=== PATIENT | female | born 1960 | race Caucasian/White ===

== ENCOUNTER 2020-07-14 08:21 | Inpatient (IN) | payer MEDICAID, SELFPAY ==
[~2020-07-14] VITALS: Ht 152.4 cm; Wt 51.3 kg
[2020-07-14 08:25] VITALS: BP_SYST 155
[2020-07-14 09:37] LABS: PROTHROMBIN TIME 10.6 SECS (9.5-12.5)
[2020-07-14] MEDS ORDERED: FUROSEMIDE 40 MG/4 ML VIAL IVP ONE (09:45)
[2020-07-14] MEDS ORDERED: NITROGLYCERIN 1 INCH (GM) OINT. TP ONE (09:45)
[2020-07-14 09:46] LABS: HEMATOCRIT 28.5 % (36-48); HEMOGLOBIN 9.3 g/dL (12.0-16.0); LYMPHOCYTES # (AUTO) 0.9 K/uL (1.0-5.5); LYMPHOCYTES % (AUTO) 3.6 % (20.5-51.5); MEAN CORPUSCULAR HEMOGLOBIN 32 pg (27-31); MEAN CORPUSCULAR HGB CONC 33 % (32-36); MEAN CORPUSCULAR VOLUME 98 fL (79.0-98.0); MONOCYTES # (AUTO) 0.6 K/uL (0.0-1.0); MONOCYTES % (AUTO) 2.5 % (1.7-9.3); NEUTROPHILS % (AUTO) 93.9 % (40.0-70.0); PLATELET COUNT (AUTO) 308 K/uL (130-430); RED BLOOD CELL COUNT(AUTO) 2.92 MIL/uL (4.2-6.2); RED CELL DISTRIBUTION WIDTH 15.6 % (9.0-15.0); WHITE BLOOD COUNT (AUTO) 25.5 K/uL (4.8-10.8)
[2020-07-14] MEDS ORDERED: cefTRIAXone 1 GM IVPB PREMIX 50 ML IV ONE (10:15)
[2020-07-14 10:16] LABS: CALCIUM 8.6 mg/dL (8.4-11.0); POTASSIUM 5.1 mmol/L (3.5-5.1)
[2020-07-14 10:21] LABS: ALBUMIN 2.6 g/dL (3.4-4.8); TOTAL BILIRUBIN 1.1 mg/dL (0.0-1.0)
[2020-07-14 10:29] LABS: CREATININE 9.09 mg/dL (0.55-1.30)
[2020-07-14] MEDS ORDERED: MUPIROCIN 2% TOPICAL OINTMENT 22 GM NS PRN (11:00)
[2020-07-14] MEDS: DECADRON 4 MG TABLET PO SCH (11:00)
[2020-07-14] MEDS ORDERED: MAGNESIUM SULFATE 50 ML IV PRN (11:00)
[2020-07-14] MEDS ORDERED: DOCUSATE SODIUM 100 MG CAPSULE PO PRN (11:00)
[2020-07-14] MEDS ORDERED: ONDANSETRON HCL 4 MG/2 ML VIAL IVP PRN (11:00)
[2020-07-14] MEDS ORDERED: AZITHROMYCIN 500 MG in NS 250 ML IV ONE (11:00)
[2020-07-14] MEDS ORDERED: ACETAMINOPHEN 325 MG TABLET PO PRN (11:00)
[2020-07-14] MEDS ORDERED: LORazepam 2 MG/ML VIAL IVP PRN (11:00)
[2020-07-14] MEDS ORDERED: POTASSIUM CHLORIDE 20 MEQ TAB.PRT.SR PO PRN (11:00)
[2020-07-14] MEDS ORDERED: PIPERACILLIN/TAZOBACTAM 2.25 GM VIAL IV ONE (18:35)
[2020-07-14] MEDS: PIPERACILLIN/TAZO 2.25G/DEX-IS 50 ML IV SCH (18:43)
[2020-07-14 19:00] VITALS: BP_SYST 113
[2020-07-14 20:00] VITALS: BP_SYST 117
[2020-07-14 21:00] VITALS: BP_SYST 120
[2020-07-14] MEDS: HEPARIN SODIUM,PORCINE 5,000 UNITS/ML VIAL SUBCUT SCH (21:00)
[2020-07-14 22:00] VITALS: BP_SYST 102
[2020-07-14 23:00] VITALS: BP_SYST 113
[2020-07-15] VITALS (7 sets, daily range): BP systolic 95–109
[2020-07-15] MEDS: PIPERACILLIN/TAZO 2.25G/DEX-IS 50 ML IV SCH ×4 (06:26→19:02)
[2020-07-15 06:51] LABS: BASOPHILS % (AUTO) 0.1 % (0.0-2.0); HEMATOCRIT 29.1 % (36-48); HEMOGLOBIN 9.7 g/dL (12.0-16.0); LYMPHOCYTES # (AUTO) 0.4 K/uL (1.0-5.5); LYMPHOCYTES % (AUTO) 2.6 % (20.5-51.5); MEAN CORPUSCULAR HEMOGLOBIN 33 pg (27-31); MEAN CORPUSCULAR HGB CONC 33 % (32-36); MEAN CORPUSCULAR VOLUME 98 fL (79.0-98.0); MONOCYTES # (AUTO) 0.4 K/uL (0.0-1.0); MONOCYTES % (AUTO) 2.7 % (1.7-9.3); NEUTROPHILS # (AUTO) 13.4 K/uL (1.8-7.7); NEUTROPHILS % (AUTO) 94.6 % (40.0-70.0); PLATELET COUNT (AUTO) 260 K/uL (130-430); RED BLOOD CELL COUNT(AUTO) 2.98 MIL/uL (4.2-6.2); RED CELL DISTRIBUTION WIDTH 14.9 % (9.0-15.0); WHITE BLOOD COUNT (AUTO) 14.2 K/uL (4.8-10.8)
[2020-07-15 08:12] LABS: CALCIUM 9.6 mg/dL (8.4-11.0); POTASSIUM 5.5 mmol/L (3.5-5.1)
[2020-07-15 08:55] LABS: CREATININE 6.85 mg/dL (0.55-1.30)
[2020-07-15] MEDS: CHOLECALCIFEROL (VITAMIN D3) 2,000 UNIT TABLET PO SCH (09:45)
[2020-07-15] MEDS: ASCORBIC ACID 500 MG TABLET PO SCH (09:45)
[2020-07-15] MEDS: AZITHROMYCIN 250 MG TABLET PO SCH (09:46)
[2020-07-15] MEDS: HEPARIN SODIUM,PORCINE 5,000 UNITS/ML VIAL SUBCUT SCH ×2 (09:47→21:04)
[2020-07-15 10:06] LABS: ERYTHROCYTE SEDIMENTATION RATE 104 MM/HR (0-20)
[2020-07-15 11:16] LABS: C-REACTIVE PROTEIN QUANT 63.6 mg/dL (0-0.5)
[2020-07-15] MEDS: DECADRON 4 MG TABLET PO SCH (11:50)
[2020-07-16] MEDS: PIPERACILLIN/TAZO 2.25G/DEX-IS 50 ML IV SCH ×4 (00:19→19:07)
[2020-07-16 08:33] LABS: BASOPHILS % (AUTO) 0.1 % (0.0-2.0); HEMATOCRIT 30.4 % (36-48); HEMOGLOBIN 9.9 g/dL (12.0-16.0); LYMPHOCYTES # (AUTO) 0.5 K/uL (1.0-5.5); LYMPHOCYTES % (AUTO) 3.5 % (20.5-51.5); MEAN CORPUSCULAR HEMOGLOBIN 32 pg (27-31); MEAN CORPUSCULAR HGB CONC 33 % (32-36); MEAN CORPUSCULAR VOLUME 98 fL (79.0-98.0); MONOCYTES # (AUTO) 0.9 K/uL (0.0-1.0); MONOCYTES % (AUTO) 5.9 % (1.7-9.3); NEUTROPHILS # (AUTO) 13.9 K/uL (1.8-7.7); NEUTROPHILS % (AUTO) 90.5 % (40.0-70.0); PLATELET COUNT (AUTO) 345 K/uL (130-430); RED BLOOD CELL COUNT(AUTO) 3.12 MIL/uL (4.2-6.2); RED CELL DISTRIBUTION WIDTH 15.3 % (9.0-15.0); WHITE BLOOD COUNT (AUTO) 15.4 K/uL (4.8-10.8)
[2020-07-16 09:00] LABS: ALBUMIN 1.8 g/dL (3.4-4.8); CALCIUM 9.7 mg/dL (8.4-11.0); CREATININE 7.1 mg/dL (0.55-1.30); TOTAL BILIRUBIN 0.7 mg/dL (0.0-1.0)
[2020-07-16] MEDS: ASCORBIC ACID 500 MG TABLET PO SCH (09:14)
[2020-07-16] MEDS: CHOLECALCIFEROL (VITAMIN D3) 2,000 UNIT TABLET PO SCH (09:15)
[2020-07-16] MEDS: AZITHROMYCIN 250 MG TABLET PO SCH (09:15)
[2020-07-16 09:45] LABS: POTASSIUM 6.4 mmol/L (3.5-5.1)
[2020-07-16] MEDS: HEPARIN SODIUM,PORCINE 5,000 UNITS/ML VIAL SUBCUT SCH ×2 (09:52→20:44)
[2020-07-16] MEDS ORDERED: DEXTROSE 50% JECT 50 ML DISP.SYRIN IVP ONE (10:00)
[2020-07-16] MEDS ORDERED: CALCIUM GLUCONATE 1 GM/10 ML VIAL IVP ONE (10:00)
[2020-07-16] MEDS ORDERED: INSULIN REGULAR, HUMAN 100 UNITS/ML, 10 ML VIAL SUBCUT ONE (10:00)
[2020-07-16] MEDS ORDERED: INSULIN REGULAR, HUMAN 10 UNITS/0.1 ML INJ ONE (10:45)
[2020-07-16] MEDS ORDERED: CALCIUM GLUCONATE 1 GM in NS 50 ML IV ONE (11:00)
[2020-07-16] MEDS: DECADRON 4 MG TABLET PO SCH (11:33)
[2020-07-16 12:37] LABS: C-REACTIVE PROTEIN QUANT 31.1 mg/dL (0-0.5)
[2020-07-16 12:40] LABS: ERYTHROCYTE SEDIMENTATION RATE 98 MM/HR (0-20)
[2020-07-17] MEDS: PIPERACILLIN/TAZO 2.25G/DEX-IS 50 ML IV SCH ×4 (00:26→18:30)
[2020-07-17 06:21] LABS: BASOPHILS % (AUTO) 0.3 % (0.0-2.0); HEMATOCRIT 26.6 % (36-48); HEMOGLOBIN 8.7 g/dL (12.0-16.0); LYMPHOCYTES # (AUTO) 0.5 K/uL (1.0-5.5); LYMPHOCYTES % (AUTO) 4.1 % (20.5-51.5); MEAN CORPUSCULAR HEMOGLOBIN 32 pg (27-31); MEAN CORPUSCULAR HGB CONC 33 % (32-36); MEAN CORPUSCULAR VOLUME 98 fL (79.0-98.0); MONOCYTES # (AUTO) 0.9 K/uL (0.0-1.0); NEUTROPHILS # (AUTO) 9.7 K/uL (1.8-7.7); NEUTROPHILS % (AUTO) 87.6 % (40.0-70.0); PLATELET COUNT (AUTO) 282 K/uL (130-430); RED BLOOD CELL COUNT(AUTO) 2.72 MIL/uL (4.2-6.2); RED CELL DISTRIBUTION WIDTH 15.2 % (9.0-15.0); WHITE BLOOD COUNT (AUTO) 11.1 K/uL (4.8-10.8)
[2020-07-17 07:46] LABS: CALCIUM 8.5 mg/dL (8.4-11.0); POTASSIUM 4.7 mmol/L (3.5-5.1)
[2020-07-17 08:13] LABS: ERYTHROCYTE SEDIMENTATION RATE 101 MM/HR (0-20)
[2020-07-17 09:19] VITALS: BP_SYST 137
[2020-07-17 09:33] LABS: CREATININE 6.07 mg/dL (0.55-1.30)
[2020-07-17] MEDS: CHOLECALCIFEROL (VITAMIN D3) 2,000 UNIT TABLET PO SCH (10:01)
[2020-07-17] MEDS: ASCORBIC ACID 500 MG TABLET PO SCH (10:01)
[2020-07-17] MEDS: AZITHROMYCIN 250 MG TABLET PO SCH (10:01)
[2020-07-17] MEDS: HEPARIN SODIUM,PORCINE 5,000 UNITS/ML VIAL SUBCUT SCH ×2 (10:13→20:40)
[2020-07-17 10:59] LABS: C-REACTIVE PROTEIN QUANT 15.7 mg/dL (0-0.5)
[2020-07-17] MEDS: DECADRON 4 MG TABLET PO SCH (11:03)
[2020-07-17 19:00] VITALS: BP_SYST 117
[2020-07-17 20:00] VITALS: BP_SYST 127
[2020-07-17 21:00] VITALS: BP_SYST 135
[2020-07-17 22:00] VITALS: BP_SYST 142
[2020-07-17 23:00] VITALS: BP_SYST 141
[2020-07-18] VITALS (7 sets, daily range): BP systolic 143–154
[2020-07-18] MEDS: PIPERACILLIN/TAZO 2.25G/DEX-IS 50 ML IV SCH ×5 (00:53→23:56)
[2020-07-18 06:53] LABS: BASOPHILS % (AUTO) 0.5 % (0.0-2.0); EOSINOPHILS % (AUTO) 0.1 % (0.0-4.0); HEMATOCRIT 24.2 % (36-48); HEMOGLOBIN 8.2 g/dL (12.0-16.0); LYMPHOCYTES # (AUTO) 0.5 K/uL (1.0-5.5); LYMPHOCYTES % (AUTO) 5.1 % (20.5-51.5); MEAN CORPUSCULAR HEMOGLOBIN 33 pg (27-31); MEAN CORPUSCULAR HGB CONC 34 % (32-36); MEAN CORPUSCULAR VOLUME 98 fL (79.0-98.0); MONOCYTES # (AUTO) 0.6 K/uL (0.0-1.0); MONOCYTES % (AUTO) 6.8 % (1.7-9.3); NEUTROPHILS # (AUTO) 8.1 K/uL (1.8-7.7); NEUTROPHILS % (AUTO) 87.5 % (40.0-70.0); PLATELET COUNT (AUTO) 264 K/uL (130-430); RED BLOOD CELL COUNT(AUTO) 2.48 MIL/uL (4.2-6.2); WHITE BLOOD COUNT (AUTO) 9.2 K/uL (4.8-10.8)
[2020-07-18 07:56] LABS: ALBUMIN 1.8 g/dL (3.4-4.8); C-REACTIVE PROTEIN QUANT 8.8 mg/dL (0-0.5); CALCIUM 8.4 mg/dL (8.4-11.0); POTASSIUM 4.7 mmol/L (3.5-5.1); TOTAL BILIRUBIN 0.7 mg/dL (0.0-1.0)
[2020-07-18] MEDS: CHOLECALCIFEROL (VITAMIN D3) 2,000 UNIT TABLET PO SCH (08:43)
[2020-07-18] MEDS: ASCORBIC ACID 500 MG TABLET PO SCH (08:43)
[2020-07-18] MEDS: AZITHROMYCIN 250 MG TABLET PO SCH (08:43)
[2020-07-18] MEDS: HEPARIN SODIUM,PORCINE 5,000 UNITS/ML VIAL SUBCUT SCH ×2 (08:44→20:55)
[2020-07-18 08:52] LABS: ERYTHROCYTE SEDIMENTATION RATE 95 MM/HR (0-20)
[2020-07-18 09:29] LABS: CREATININE 7.59 mg/dL (0.55-1.30)
[2020-07-18] MEDS: DECADRON 4 MG TABLET PO SCH (11:54)
[2020-07-19 05:50] LABS: CREATININE 6.02 mg/dL (0.55-1.30); POTASSIUM 3.9 mmol/L (3.5-5.1)
[2020-07-19] MEDS: PIPERACILLIN/TAZO 2.25G/DEX-IS 50 ML IV SCH ×4 (05:58→23:38)
[2020-07-19 06:46] LABS: C-REACTIVE PROTEIN QUANT 6.2 mg/dL (0-0.5)
[2020-07-19 06:52] LABS: BASOPHILS % (AUTO) 0.2 % (0.0-2.0); EOSINOPHILS % (AUTO) 0.1 % (0.0-4.0); HEMATOCRIT 24.6 % (36-48); HEMOGLOBIN 8.3 g/dL (12.0-16.0); LYMPHOCYTES # (AUTO) 0.5 K/uL (1.0-5.5); LYMPHOCYTES % (AUTO) 5.1 % (20.5-51.5); MEAN CORPUSCULAR HEMOGLOBIN 33 pg (27-31); MEAN CORPUSCULAR HGB CONC 34 % (32-36); MEAN CORPUSCULAR VOLUME 98 fL (79.0-98.0); MONOCYTES % (AUTO) 9.4 % (1.7-9.3); NEUTROPHILS # (AUTO) 8.9 K/uL (1.8-7.7); NEUTROPHILS % (AUTO) 85.2 % (40.0-70.0); PLATELET COUNT (AUTO) 256 K/uL (130-430); RED BLOOD CELL COUNT(AUTO) 2.52 MIL/uL (4.2-6.2); WHITE BLOOD COUNT (AUTO) 10.4 K/uL (4.8-10.8)
[2020-07-19 08:12] LABS: ERYTHROCYTE SEDIMENTATION RATE 85 MM/HR (0-20)
[2020-07-19] MEDS: ASCORBIC ACID 500 MG TABLET PO SCH (08:45)
[2020-07-19] MEDS: AZITHROMYCIN 250 MG TABLET PO SCH (08:46)
[2020-07-19] MEDS: CHOLECALCIFEROL (VITAMIN D3) 2,000 UNIT TABLET PO SCH (08:47)
[2020-07-19] MEDS: HEPARIN SODIUM,PORCINE 5,000 UNITS/ML VIAL SUBCUT SCH ×2 (08:51→20:11)
[2020-07-19] MEDS: DECADRON 4 MG TABLET PO SCH (11:11)
[2020-07-19] MEDS: guaiFENesin/DEXTROMETHORPHAN 10 ML UDC PO PRN (16:45)
[2020-07-19 19:00] VITALS: BP_SYST 141
[2020-07-19 20:00] VITALS: BP_SYST 140
[2020-07-19 21:00] VITALS: BP_SYST 138
[2020-07-19 22:00] VITALS: BP_SYST 131
[2020-07-19 23:00] VITALS: BP_SYST 150
[2020-07-20] VITALS (7 sets, daily range): BP systolic 108–148
[2020-07-20] MEDS: PIPERACILLIN/TAZO 2.25G/DEX-IS 50 ML IV SCH ×3 (05:20→17:03)
[2020-07-20] MEDS: CHOLECALCIFEROL (VITAMIN D3) 2,000 UNIT TABLET PO SCH (08:20)
[2020-07-20] MEDS: ASCORBIC ACID 500 MG TABLET PO SCH (08:20)
[2020-07-20] MEDS: guaiFENesin/DEXTROMETHORPHAN 10 ML UDC PO PRN (08:23)
[2020-07-20] MEDS: HEPARIN SODIUM,PORCINE 5,000 UNITS/ML VIAL SUBCUT SCH ×2 (08:26→20:39)
[2020-07-20] MEDS: DECADRON 4 MG TABLET PO SCH (11:16)
[2020-07-21] MEDS: PIPERACILLIN/TAZO 2.25G/DEX-IS 50 ML IV SCH ×4 (00:52→18:15)
[2020-07-21 06:50] LABS: INR 1.1 (0.8-1.2); PROTHROMBIN TIME 11.4 SECS (9.5-12.5)
[2020-07-21] MEDS: ASCORBIC ACID 500 MG TABLET PO SCH (09:24)
[2020-07-21] MEDS: CHOLECALCIFEROL (VITAMIN D3) 2,000 UNIT TABLET PO SCH (09:25)
[2020-07-21] MEDS: HEPARIN SODIUM,PORCINE 5,000 UNITS/ML VIAL SUBCUT SCH ×2 (10:30→21:14)
[2020-07-21] MEDS: DECADRON 4 MG TABLET PO SCH (11:10)
[2020-07-21 11:36] LABS: BASOPHILS % (AUTO) 0.3 % (0.0-2.0); EOSINOPHILS # (AUTO) 0.1 K/uL (0.0-0.4); EOSINOPHILS % (AUTO) 0.8 % (0.0-4.0); HEMATOCRIT 25.1 % (36-48); HEMOGLOBIN 8.5 g/dL (12.0-16.0); LYMPHOCYTES # (AUTO) 0.6 K/uL (1.0-5.5); LYMPHOCYTES % (AUTO) 4.7 % (20.5-51.5); MEAN CORPUSCULAR HEMOGLOBIN 33 pg (27-31); MEAN CORPUSCULAR HGB CONC 34 % (32-36); MEAN CORPUSCULAR VOLUME 97 fL (79.0-98.0); MONOCYTES # (AUTO) 1.1 K/uL (0.0-1.0); MONOCYTES % (AUTO) 8.9 % (1.7-9.3); NEUTROPHILS # (AUTO) 10.7 K/uL (1.8-7.7); NEUTROPHILS % (AUTO) 85.3 % (40.0-70.0); PLATELET COUNT (AUTO) 256 K/uL (130-430); RED BLOOD CELL COUNT(AUTO) 2.59 MIL/uL (4.2-6.2); RED CELL DISTRIBUTION WIDTH 15.4 % (9.0-15.0); WHITE BLOOD COUNT (AUTO) 12.5 K/uL (4.8-10.8)
[2020-07-21 11:52] LABS: CALCIUM 8.9 mg/dL (8.4-11.0); CREATININE 6.22 mg/dL (0.55-1.30); POTASSIUM 3.1 mmol/L (3.5-5.1)
[2020-07-21 12:08] LABS: C-REACTIVE PROTEIN QUANT 11.7 mg/dL (0-0.5)
[2020-07-21 12:12] LABS: ERYTHROCYTE SEDIMENTATION RATE 111 MM/HR (0-20)
[2020-07-22] MEDS: PIPERACILLIN/TAZO 2.25G/DEX-IS 50 ML IV SCH ×4 (00:46→18:10)
[2020-07-22 08:17] LABS: BASOPHILS # (AUTO) 0.1 K/uL (0.0-0.2); BASOPHILS % (AUTO) 0.5 % (0.0-2.0); EOSINOPHILS # (AUTO) 0.1 K/uL (0.0-0.4); EOSINOPHILS % (AUTO) 0.5 % (0.0-4.0); HEMATOCRIT 23.5 % (36-48); LYMPHOCYTES # (AUTO) 0.7 K/uL (1.0-5.5); LYMPHOCYTES % (AUTO) 6.9 % (20.5-51.5); MEAN CORPUSCULAR HEMOGLOBIN 33 pg (27-31); MEAN CORPUSCULAR HGB CONC 34 % (32-36); MEAN CORPUSCULAR VOLUME 98 fL (79.0-98.0); MONOCYTES # (AUTO) 0.8 K/uL (0.0-1.0); MONOCYTES % (AUTO) 8.4 % (1.7-9.3); PLATELET COUNT (AUTO) 228 K/uL (130-430); RED CELL DISTRIBUTION WIDTH 15.7 % (9.0-15.0); WHITE BLOOD COUNT (AUTO) 9.6 K/uL (4.8-10.8)
[2020-07-22] MEDS: ASCORBIC ACID 500 MG TABLET PO SCH (08:29)
[2020-07-22] MEDS: CHOLECALCIFEROL (VITAMIN D3) 2,000 UNIT TABLET PO SCH (08:30)
[2020-07-22] MEDS: HEPARIN SODIUM,PORCINE 5,000 UNITS/ML VIAL SUBCUT SCH ×2 (08:31→21:01)
[2020-07-22 08:46] LABS: ALBUMIN 1.9 g/dL (3.4-4.8); CALCIUM 9.1 mg/dL (8.4-11.0); POTASSIUM 3.1 mmol/L (3.5-5.1); TOTAL BILIRUBIN 0.7 mg/dL (0.0-1.0)
[2020-07-22 08:49] LABS: CREATININE 7.85 mg/dL (0.55-1.30)
[2020-07-22] MEDS: DECADRON 4 MG TABLET PO SCH (11:02)
[2020-07-22 13:46] LABS: NEUTROPHILS % (AUTO) 83.7 % (40.0-70.0)
[2020-07-22 16:04] LABS: CALCIUM 8.6 mg/dL (8.4-11.0); POTASSIUM 3.5 mmol/L (3.5-5.1)
[2020-07-22 16:11] LABS: CREATININE 8.48 mg/dL (0.55-1.30)
[2020-07-22 17:35] VITALS: BP_SYST 167
[2020-07-22 17:59] VITALS: BP_SYST 167
[2020-07-22 20:00] VITALS: BP_SYST 137
[2020-07-23] VITALS: BP_SYST 141
[2020-07-23] MEDS: PIPERACILLIN/TAZO 2.25G/DEX-IS 50 ML IV SCH ×4 (00:20→12:44)
[2020-07-23 08:00] VITALS: BP_SYST 141
[2020-07-23 08:08] LABS: BASOPHILS % (AUTO) 0.3 % (0.0-2.0); EOSINOPHILS # (AUTO) 0.1 K/uL (0.0-0.4); EOSINOPHILS % (AUTO) 0.8 % (0.0-4.0); HEMATOCRIT 23.6 % (36-48); HEMOGLOBIN 7.9 g/dL (12.0-16.0); LYMPHOCYTES # (AUTO) 0.6 K/uL (1.0-5.5); MEAN CORPUSCULAR HEMOGLOBIN 33 pg (27-31); MEAN CORPUSCULAR HGB CONC 33 % (32-36); MEAN CORPUSCULAR VOLUME 98 fL (79.0-98.0); MONOCYTES # (AUTO) 0.8 K/uL (0.0-1.0); MONOCYTES % (AUTO) 9.1 % (1.7-9.3); NEUTROPHILS # (AUTO) 7.6 K/uL (1.8-7.7); NEUTROPHILS % (AUTO) 82.8 % (40.0-70.0); PLATELET COUNT (AUTO) 220 K/uL (130-430); RED BLOOD CELL COUNT(AUTO) 2.41 MIL/uL (4.2-6.2); WHITE BLOOD COUNT (AUTO) 9.2 K/uL (4.8-10.8)
[2020-07-23 08:37] LABS: CALCIUM 9.6 mg/dL (8.4-11.0); CREATININE 6.09 mg/dL (0.55-1.30); POTASSIUM 3.4 mmol/L (3.5-5.1)
[2020-07-23] MEDS: ASCORBIC ACID 500 MG TABLET PO SCH (09:04)
[2020-07-23] MEDS: CHOLECALCIFEROL (VITAMIN D3) 2,000 UNIT TABLET PO SCH (09:04)
[2020-07-23] MEDS: HEPARIN SODIUM,PORCINE 5,000 UNITS/ML VIAL SUBCUT SCH ×2 (09:05→21:05)
[2020-07-23 12:00] VITALS: BP_SYST 122
[2020-07-23] MEDS: DECADRON 4 MG TABLET PO SCH (12:00)
[2020-07-23 14:26] VITALS: BP_SYST 122
[2020-07-23 18:21] VITALS: BP_SYST 120
[2020-07-23 22:18] VITALS: BP_SYST 160
[2020-07-24] VITALS: BP_SYST 148
[2020-07-24] MEDS: PIPERACILLIN/TAZO 2.25G/DEX-IS 50 ML IV SCH ×2 (06:00)
[2020-07-24 07:45] VITALS: BP_SYST 126
[2020-07-24 08:54] LABS: BASOPHILS % (AUTO) 0.5 % (0.0-2.0); EOSINOPHILS % (AUTO) 0.2 % (0.0-4.0); HEMATOCRIT 23.3 % (36-48); HEMOGLOBIN 7.8 g/dL (12.0-16.0); LYMPHOCYTES # (AUTO) 0.6 K/uL (1.0-5.5); LYMPHOCYTES % (AUTO) 6.9 % (20.5-51.5); MEAN CORPUSCULAR HEMOGLOBIN 33 pg (27-31); MEAN CORPUSCULAR HGB CONC 33 % (32-36); MEAN CORPUSCULAR VOLUME 99 fL (79.0-98.0); MONOCYTES # (AUTO) 0.7 K/uL (0.0-1.0); MONOCYTES % (AUTO) 8.1 % (1.7-9.3); NEUTROPHILS # (AUTO) 6.9 K/uL (1.8-7.7); NEUTROPHILS % (AUTO) 84.3 % (40.0-70.0); PLATELET COUNT (AUTO) 201 K/uL (130-430); RED BLOOD CELL COUNT(AUTO) 2.36 MIL/uL (4.2-6.2); RED CELL DISTRIBUTION WIDTH 15.7 % (9.0-15.0); WHITE BLOOD COUNT (AUTO) 8.2 K/uL (4.8-10.8)
[2020-07-24] MEDS: CHOLECALCIFEROL (VITAMIN D3) 2,000 UNIT TABLET PO SCH (09:17)
[2020-07-24] MEDS: ASCORBIC ACID 500 MG TABLET PO SCH (09:17)
[2020-07-24] MEDS: HEPARIN SODIUM,PORCINE 5,000 UNITS/ML VIAL SUBCUT SCH ×2 (09:18→21:00)
[2020-07-24 09:53] LABS: CALCIUM 9.3 mg/dL (8.4-11.0); CREATININE 8.09 mg/dL (0.55-1.30)
[2020-07-24 12:00] VITALS: BP_SYST 147
[2020-07-24] MEDS: DECADRON 4 MG TABLET PO SCH (12:23)
[2020-07-24 16:00] VITALS: BP_SYST 132
[2020-07-24 20:00] VITALS: BP_SYST 155
[2020-07-25] VITALS: BP_SYST 148
[2020-07-25 06:51] LABS: BASOPHILS # (AUTO) 0.1 K/uL (0.0-0.2); EOSINOPHILS % (AUTO) 0.4 % (0.0-4.0); HEMATOCRIT 22.4 % (36-48); HEMOGLOBIN 7.7 g/dL (12.0-16.0); LYMPHOCYTES # (AUTO) 0.8 K/uL (1.0-5.5); LYMPHOCYTES % (AUTO) 8.4 % (20.5-51.5); MEAN CORPUSCULAR HEMOGLOBIN 34 pg (27-31); MEAN CORPUSCULAR HGB CONC 34 % (32-36); MEAN CORPUSCULAR VOLUME 98 fL (79.0-98.0); MONOCYTES # (AUTO) 0.7 K/uL (0.0-1.0); NEUTROPHILS # (AUTO) 7.7 K/uL (1.8-7.7); NEUTROPHILS % (AUTO) 82.2 % (40.0-70.0); PLATELET COUNT (AUTO) 185 K/uL (130-430); RED BLOOD CELL COUNT(AUTO) 2.28 MIL/uL (4.2-6.2); RED CELL DISTRIBUTION WIDTH 15.5 % (9.0-15.0); WHITE BLOOD COUNT (AUTO) 9.3 K/uL (4.8-10.8)
[2020-07-25 07:24] LABS: CALCIUM 8.8 mg/dL (8.4-11.0); POTASSIUM 3.9 mmol/L (3.5-5.1)
[2020-07-25 08:00] VITALS: BP_SYST 145
[2020-07-25 08:52] LABS: CREATININE 9.62 mg/dL (0.55-1.30)
[2020-07-25] MEDS ORDERED: APIX2.5T PO (09:20)
[2020-07-25] MEDS: ASCORBIC ACID 500 MG TABLET PO SCH (10:05)
[2020-07-25] MEDS: CHOLECALCIFEROL (VITAMIN D3) 2,000 UNIT TABLET PO SCH (10:05)
[2020-07-25] MEDS: HEPARIN SODIUM,PORCINE 5,000 UNITS/ML VIAL SUBCUT SCH ×2 (10:07→22:29)
[2020-07-25 12:00] VITALS: BP_SYST 126
[2020-07-25] MEDS: DECADRON 4 MG TABLET PO SCH (12:13)
[2020-07-25 16:35] VITALS: BP_SYST 160
[2020-07-25 20:20] VITALS: BP_SYST 141
[2020-07-26] VITALS: BP_SYST 132
[2020-07-26 04:09] VITALS: BP_SYST 135
[2020-07-26 08:00] VITALS: BP_SYST 142
[2020-07-26] MEDS: ASCORBIC ACID 500 MG TABLET PO SCH (08:45)
[2020-07-26] MEDS: CHOLECALCIFEROL (VITAMIN D3) 2,000 UNIT TABLET PO SCH (08:45)
[2020-07-26] MEDS: HEPARIN SODIUM,PORCINE 5,000 UNITS/ML VIAL SUBCUT SCH (10:20)
[2020-07-26] MEDS: DECADRON 4 MG TABLET PO SCH (11:43)
[2020-07-26 11:49] VITALS: BP_SYST 110
[2020-07-26 15:50] VITALS: BP_SYST 115
[2020-07-26 16:38] VITALS: BP_SYST 142
== END 2020-07-26 16:30 | disposition home or self-care (01) | DRG 720 ==
LOC: SED 08:21 → SIC 10:19 → STU 07-22 16:33 → SMU 07-25 13:35 → STU 07-25 19:43
PROVIDERS: ADMIT General Practice; ATTEND General Practice
PROC: 5A1D70Z Performance of Urinary Filtration, Intermittent, Less than 6 Hours Per Day (ICD-10-PCS; 2020-07-14)
PROC: 5A09357 Assistance with Respiratory Ventilation, Less than 24 Consecutive Hours, Continuous Positive Airway Pressure (ICD-10-PCS; 2020-07-14)
PROC: 5A09457 Assistance with Respiratory Ventilation, 24-96 Consecutive Hours, Continuous Positive Airway Pressure (ICD-10-PCS; 2020-07-15)
PROC: XW13325 Transfusion of Convalescent Plasma (Nonautologous) into Peripheral Vein, Percutaneous Approach, New Technology Group 5 (ICD-10-PCS; principal; 2020-07-16)
PROC: 5A1D70Z Performance of Urinary Filtration, Intermittent, Less than 6 Hours Per Day (ICD-10-PCS; 2020-07-16)
PROC: 5A09357 Assistance with Respiratory Ventilation, Less than 24 Consecutive Hours, Continuous Positive Airway Pressure (ICD-10-PCS; 2020-07-17)
PROC: 5A1D70Z Performance of Urinary Filtration, Intermittent, Less than 6 Hours Per Day (ICD-10-PCS; 2020-07-18)
PROC: 5A09357 Assistance with Respiratory Ventilation, Less than 24 Consecutive Hours, Continuous Positive Airway Pressure (ICD-10-PCS; 2020-07-18)
PROC: 5A1D70Z Performance of Urinary Filtration, Intermittent, Less than 6 Hours Per Day (ICD-10-PCS; 2020-07-19)
PROC: 5A1D70Z Performance of Urinary Filtration, Intermittent, Less than 6 Hours Per Day (ICD-10-PCS; 2020-07-21)
PROC: 5A1D70Z Performance of Urinary Filtration, Intermittent, Less than 6 Hours Per Day (ICD-10-PCS; 2020-07-24)
DX: A41.9 Sepsis, unspecified organism (principal); U07.1 COVID-19; J12.82 Pneumonia due to coronavirus disease 2019; I13.2 Hypertensive heart and chronic kidney disease with heart failure and with stage 5 chronic kidney disease, or end stage renal disease; N18.6 End stage renal disease; E43 Unspecified severe protein-calorie malnutrition; N17.0 Acute kidney failure with tubular necrosis; D63.8 Anemia in other chronic diseases classified elsewhere; J96.01 Acute respiratory failure with hypoxia; E87.5 Hyperkalemia; R53.81 Other malaise; I50.43 Acute on chronic combined systolic (congestive) and diastolic (congestive) heart failure; Z99.2 Dependence on renal dialysis; Z88.5 Allergy status to narcotic agent; Z68.22 Body mass index [BMI] 22.0-22.9, adult; R65.20 Severe sepsis without septic shock
CPT/HCPCS: 36415; 36430; 36600; 71045; 80048; 80053; 80061; 82728; 82803-TC; 83036; 83605; 83735-TC; 83880; 84484; 85025; 85379; 85610-TC; 85651-TC; 85730-TC; 86140; 86886; 86900; 86901; 87040-TC; 87081; 93005; 94660; 94760; 96365; 96375; 99291; G0378; J0456; J0610; J0696; J1644; J1815; J1940; J2405; J2543; J3475; J7030; J7050; J8540; P9017; Q0144